=== PATIENT | female | born 1990 | race Hispanic/Latino ===

== ENCOUNTER 2016-10-16 07:51 | Inpatient (IN) | payer OTHER ==
[~2016-10-16] VITALS: Ht 162.6 cm; Wt 98.0 kg
[~2016-10-16 07:51] MED LIST: Carboprost 250 mCg/mL Inj IM PRN; Docusate Sodium PO; Hemorrhage Kit, Post Partum XX ONE; Ibuprofen PO; Lactated Ringer's 1,000 ML IV ONE; Lactated Ringer's 1,000 ML IV SCH; Methylergonovine 0.2 mg/mL Inj IM PRN; Oxycodone Hcl/Acetaminophen PO; Oxytocin 10 Unit/mL Inj IM PRN; PREN1TAB47; Sodium Citrate-Citric Acid 15 mL Solution PO SCH
[2016-10-16] MEDS ORDERED: CeFAZolin Inj 2 GM in IV Premix 1 EACH IV ONE (08:08)
[2016-10-16 08:40] LABS: Mean Corpuscular Hemoglobin 24.1 pg (27.0-35.0); Mean Corpuscular Volume 77.6 fL (81-100)
--- NOTE | 2016-10-16 09:34 | PCM.HPANE ---
Patient Data Surgeon Admitting Provider:Tracie Desouza MD Attending Provider:Tracie Desouza MD Primary Care Physician:Bull Riley MD Other Provider:Jose Carcamo Anesthesia Reason for Visit Previous PREVIOUS Ht/WT & BMI Body Mass Index Allergies Coded Allergies: No Known Allergies (Verified , 04/30/16) Past Anesthesia History Anesthesia History: Denies:: Abnormal Airway, Anesthesia Reactions, Difficult Intubation, Fam Anesthesia Reaction, Fam Malignant Hypertherm, Malignant Hyperthermia Diabetes History Hx Diabetes?: No MRSA MRSA: No Medications Active Scripts [Ibuprofen] (Motrin)800 MG TABLET No Conflict Hjoai025 Mg PO Q6H PRN For Pain Prov:Freda Cardoza DO 12/09/14 [Oxycodone Hcl/Acetaminophen] (Percocet 5-325)1 TAB TABLET No Conflict Check1-2 Tab PO Q4H PRN For Pain Prov:Freda Cardoza DO 12/09/14 [Docusate Sodium] (Colace)100 MG CAPSULE No Conflict Kasxf123 Mg PO BID Prov:Freda Cardoza DO 12/09/14 Reported Medications Vit/Fe Fumarate/Fa-Expunged Drug, Do (-Expunged Drug, Do Not Renew!)1 Tab Tablet 10/30/07 History History of ENT Problems?: No HEENT History: Denies:: Abnormal Airway Cataracts Difficult Intubation Dysphagia Glaucoma Hearing Problem Sinus Problem TMJ Denture Type: None Teeth Condition: Within Normal Limits Hx of Heart Problems?: No Cardiovascular History: Denies:: Congestive Heart Failure Hypertension Hx of Respiratory Problem?: No Respiratory History: Denies:: Tuberculosis Hx Neurologic Problems?: No Hx of GI Problems?: No Hx of Problems?: No HX of Peritoneal Dialysis: No Other History/Comment Previous C sections x 3, here today for repeat Female Hx: Positive for:: Currently Other History/Comment Uncomplicated , with previous C sections Hx Musculoskeletal Problems?: No Hx of Psycho/Social Problems?: No Hx Surgeries?: Yes ( 3x c-esctions) Hx Diabetes: No Hx Alcohol Use: NoHx Substance Use: No Smoking Status: Never Smoker Stop/Bang Treated for Sleep Apnea?: No Do You Have a CPAP Machine?: No Risk Assessment Category Category 1A: Patient has history of documented sleep apnea, and HAS NOT received any narcotic, sedative or anesthesia administration during this stay. Category 1B: Patient has history of documented sleep apnea, and HAS received any narcotic , sedative or anesthesia administration during this stay Category 2: Patient has SUSPECTED Obstructive Sleep Apnea, and HAS received any narcotic , sedative or anesthesia administration during this stay. Category 3: Patient has SUSPECTED Obstructive Sleep Apnea and HAS NOT received narcotic, sedative or anesthesia administration during this stay. Category 4: Outpatient in Procedural Areas with known sleep apnea or who screen positive for High Risk via the STOP/BANG questionnaire. Exam Exam General Appearance: Alert, Oriented X3, Cooperative HEENT/AIRWAY: MP 2 Lungs: Clear to Auscultation Heart: Exam Unremarkable, Regular Rate/Rhythm, Normal S1, Normal S2, No Murmurs /Rubs/Gallops Meds/Labs/Diagnostics Admission Meds Current Medications Lactated Ringer's 1,000 ml @ 120 mls/hr Q8H20M ONCE IV Last administered on 08:47; Start 10/16/16 at 05:00; Stop 10/16/16 at 13:19 Cefazolin Sodium/ Dextrose/Premix (Ancef Inj / D5W 50mL/IV Premix) 50 ml @ 100 mls/hr ONCE ONCE IV Last administered on 10/16/16 08:46; Start 10/16/16 at 08: 08; Stop 10/16/16 at 08:37; Status DC Labs Test 10/16/16 08:10 White Blood Count 8.3th/mm3 (3.8-10.1) Red Blood Count 4.74mil/mm3 (3.90-5.20) Hemoglobin 11.4g/dL (12.0-15.6) Hematocrit 36.8% (35.0-46.0) Mean Corpuscular Volume 77.6fL (81-100) Mean Corpuscular Hemoglobin 24.1pg (27.0-35.0) Mean Corpuscular Hemoglobin Concent 31.0% (32.0-37.0) Red Cell Distribution Width 15.2% (12.3-15.4) Platelet Count 240bil/L (150-400) Plan Impression Patient chart reviewed, patient interviewed and anesthestic plan with risks, benefits, and alternatives discussed, and informed consent obtained. Mani Martell MD Oct 16, 2016 09:34
[2016-10-16] MEDS ORDERED: Atropine 0.4 mg/mL Inj IV PRN (09:35)
[2016-10-16] MEDS ORDERED: EPHEDrine Sulfate 50 mg/mL Inj IVPUSH PRN (09:35)
[2016-10-16] MEDS ORDERED: fentaNYL-PF 50 mCg/mL 2 mL Inj IVPUSH PRN (09:35)
[2016-10-16] MEDS ORDERED: Phenylephrine/NS 100 mCg/mL 10 mL Syringe IVPUSH ONE (09:37)
[2016-10-16] MEDS ORDERED: Ondansetron 2 mg/mL 2 mL Inj ONE (09:37)
[2016-10-16] MEDS ORDERED: Morphine PF 1 mg/mL 10 mL Inj ONE (09:38)
[2016-10-16] MEDS ORDERED: Oxytocin 10 Unit/mL Inj IM PRN (11:20)
[2016-10-16] MEDS ORDERED: Hemorrhage Kit, Post Partum XX ONE (11:20)
[2016-10-16] MEDS ORDERED: hydrOXYzine Pamoate 25 mg Capsule PO PRN (11:20)
[2016-10-16] MEDS ORDERED: Oxytocin 30 Units/500 mL LR 30 UNITS in IV Premix 1 EACH IV PRN (11:20)
[2016-10-16] MEDS ORDERED: diphenhydrAMINE 50 mg Capsule PO PRN (11:20)
[2016-10-16] MEDS ORDERED: Carboprost 250 mCg/mL Inj IM PRN (11:20)
[2016-10-16] MEDS ORDERED: Sodium Chloride LOK Flush 10 mL Syringe IVFLUSH PRN (11:20)
[2016-10-16] MEDS ORDERED: Methylergonovine 0.2 mg/mL Inj IM PRN (11:20)
[2016-10-16] MEDS ORDERED: LANOlin HPA 7 Gm Ointment TOPICAL PRN (11:20)
[2016-10-16] MEDS ORDERED: Ondansetron 8 mg ODT Tablet PO ONE (14:35)
[2016-10-16] MEDS ORDERED: MetoCLOpramide 5 mg/mL 2 mL Inj IVPUSH PRN (14:40)
[2016-10-16] MEDS ORDERED: Ondansetron 8 mg ODT Tablet PO PRN (14:40)
[2016-10-16] MEDS: Acetaminophen IV 1,000 MG in IV Premix 1 EACH IV PRN ×2 (14:47→20:54)
--- NOTE | 2016-10-16 22:43 | OP ---
[address] [address] OPERATIVE REPORT PATIENT: BRYAN BERG : 1990 MR#: [id number] ADMIT: 10/16/2016 JOB ID: [id number] DATE OF SURGERY: 10/16/2016 PREOPERATIVE DIAGNOSIS(ES): 1. Previous delivery x3. 2. A 39 weeks gestation. POSTOPERATIVE DIAGNOSIS(ES): 1. Previous delivery x3. 2. A 39 weeks gestation. PROCEDURE PERFORMED: Repeat low transverse . SURGEON: Tracie Desouza MD. VEHICLE TECHNICIAN: Bull Riley MD. ANESTHESIA: Spinal. ESTIMATED BLOOD LOSS: 500 mL. COMPLICATIONS: None. FINDINGS AT TIME OF SURGERY: Male in the cephalic presentation with infant weight of 3541 g. Apgars of 7 and 7. Intra-abdominal findings showed no pelvic adhesions. The lower uterine segment was free of any adhesive disease. The bladder was well away from the lower uterine segment scar. PROCEDURE: The patient was taken to the operating room where her spinal anesthesia was found be adequate. She was placed in lithotomy position in a leftward tilt and prepared and draped in the normal sterile fashion. A Pfannenstiel skin incision was made with a scalpel through her previous scar. This incision was carried down to the underlying fascia with the Bovie cautery. The fascia was nicked in the midline and this incision was extended laterally with the Cabrera scissors. The peritoneum was entered bluntly and this incision was extended inferiorly and then stretched with the surgeon's hands. The lower uterine segment was identified. A bladder flap was created and the uterus incised in low transverse fashion with a scalpel. Infant was delivered in a cephalic presentation without difficulty. There was no nuchal cord. The cord was doubly clamped and ligated after one minute. Cord blood was sent. The placenta was removed manually. The uterus was then exteriorized, cleared of all clots and debris. The uterine incision was repaired with two layers of 0-Vicryl suture in a running fashion. Good hemostasis was assured. The gutters were then irrigated with copiously amounts of normal saline. The uterus was returned to patient's peritoneal cavity. The uterine incision was inspected a second time and noted to be hemostatic. More irrigation was used. The rectus muscles were then reapproximated with several interrupted sutures of 0 plain gut in a horizontal mattress fashion. The fascia was then reapproximated with 0 PDS on a loop in a running fashion. Subcutaneous layer was closed with 0 plain gut. Skin was closed with a 4-0 Monocryl in a subcuticular fashion. Dermabond and Steri-Strips applied. All lap, instrument, and needle counts were correct x2 at the end of procedure. Patient was taken to her room awake and in good condition.
[2016-10-16] MEDS: Lactated Ringer's 1,000 ML IV SCH (22:47)
[2016-10-17] MEDS: Acetaminophen IV 1,000 MG in IV Premix 1 EACH IV PRN (03:12)
[2016-10-17] MEDS: Lactated Ringer's 1,000 ML IV SCH ×3 (03:25→11:16)
[2016-10-17 06:40] LABS: Mean Corpuscular Hemoglobin 24.4 pg (27.0-35.0); Mean Corpuscular Volume 79.4 fL (81-100)
[2016-10-17] MEDS: Ascorbic Acid 500 mg Tablet PO SCH (08:12)
[2016-10-18] MEDS: Ascorbic Acid 500 mg Tablet PO SCH (07:37)
--- NOTE | 2016-10-18 08:10 | PCM.DIOB ---
Obstetrical Disch Instruction Dates of Hospitalization Date of Hospital Admission Oct 16, 2016 at 07:51 Providers Admitting Physician: Tracie Desouza MD Primary Care Physician: Bull Riley MD Attending Physician: Tracie Desouza MD Diet Discharge Diet: No restrictions Activity Discharge Activity-General: Pelvic Rest for 6 weeks, Be up and about, Balance rest and activity, No lifting >10 pounds for 4-6 weeks Dressing and Incisional Care Dressing Care: Keep dressing clean, dry & intact, Allow Steri Stripes to fall off Hygiene: May shower Additional Instructions Discharge Instructions Please call with severe pain, temp >100.5, heavy vaginal bleeding, malodorous discharge, increasing redness and pain from the incision site. Follow Up Plan Follow-up Provider (F9): Tracie Desouza MD Follow-up appointment: Weeks (2) Call your provider for: Fever or Chills, Shortness of breath, Heavy vaginal bleeding, Heavy bleeding, Vaginal discomfort Noy Mcfadden MD Oct 18, 2016 08:10
[2016-10-18] MEDS ORDERED: Docusate Sodium PO (08:11)
[2016-10-18] MEDS ORDERED: Oxycodone Hcl/Acetaminophen PO (08:11)
[2016-10-18] MEDS ORDERED: Ibuprofen PO (08:11)
--- NOTE | 2016-10-18 08:37 | DIS ---
[address] [address] DISCHARGE SUMMARY PATIENT: BRYAN BERG : 1990 MR#: [id number] ADMIT: 10/16/2016 JOB ID: [id number] DIS: 10/18/2016 ADMISSION DIAGNOSES: 1. History of section x3. 2. Thirty-nine weeks gestational age. DISCHARGE DIAGNOSES: 1. History of section x3. 2. Thirty-nine weeks gestational age. 3. Status post repeat low transverse section. PROCEDURE PERFORMED: Repeat low transverse section. REASON FOR ADMISSION: This is a 26-year-old G 4, P 3-0-0-3 female who presented at 39 weeks gestation for a planned repeat low transverse section. She had a history of x3 previously. Her care was by Dr. Riley and Dr. Desouza was consulted for a care. Her surgery went well without any issues. Please see the operative report for full details. She did well postoperatively. By postoperative day #2, she was tolerating a regular diet, voiding and ambulating well on her own. Her pain was well controlled. Her lochia was minimal and she was passing flatus without any issue. It was at this point in time that she was deemed stable for discharge. LABORATORY DATA: White count is 8.3, hemoglobin is 11.4, platelet count is 240. At the time of admission by postoperative day #1, her white count is 9.1, her hemoglobin is 10.3, and her platelets are 224. INSTRUCTIONS AT DISCHARGE: The patient was advised to remain on pelvic rest for six weeks including no tampons, douche or intercourse. She was asked to call with any signs or symptoms of infection including fever greater than 100.5 degrees, severe pain, malodorous vaginal discharge, heavy vaginal bleeding, more than a pad per hour. MEDICATIONS AT DISCHARGE: 1. Percocet 5/325 1-2 tabs p.o. q.4 hours p.r.n. pain as well as ibuprofen 800 mg p.o. q.8 hours p.r.n. pain. 2. Colace 100 mg p.o. b.i.d. All questions answered and concerns of the patient were answered. She will followup with Dr. Desouza in two weeks for an incision check and continue her care with Dr. Riley in his office. The remainder of her health maintenance is managed by him.
[2016-10-18 09:35] VITALS: BP 110/54; PULSE 71
[2016-10-18] MEDS: Lactated Ringer's 1,000 ML IV SCH (09:38)
== END 2016-10-18 10:45 | disposition home or self-care (01) | DRG 766 ==
LOC: FBC 07:51 → EDSTATUS 09:30
PROVIDERS: ADMIT Obstetrics & Gynecology; ATTEND Obstetrics & Gynecology
PROC: 10D00Z1 Extraction of Products of Conception, Low, Open Approach (ICD-10-PCS; principal; 2016-10-16 09:30)
DX: O34.211 Maternal care for low transverse scar from previous cesarean delivery (principal); Z37.0 Single live birth; Z3A.39 39 weeks gestation of pregnancy